=== PATIENT | male | born 1980 | race Caucasian/White ===

== ENCOUNTER 2018-01-11 20:35 | Emergency (ER) | payer OTHER ==
[2018-01-11 20:41] VITALS: RESP 20
[2018-01-11] MEDS ORDERED: MORPHINE SULFATE 4 MG/ML SYRINGE IVP STA ×2 (20:45→22:20)
[2018-01-11] MEDS ORDERED: DIPH,PERTUS(ACELL)TETVAC-LF 0.5 ML VIAL IM ONE (20:51)
--- NOTE | 2018-01-11 21:12 | XR ---
EXAMINATION TYPE: XR hand limited LT DATE OF EXAM: 01/11/2018 COMPARISON: NONE HISTORY: 37-year-old male with pain after injury TECHNIQUE: 2 views FINDINGS: There is an oblique midshaft fracture of the second proximal phalanx with one half shaft's width of u lnar displacement and blayne dorsal angulation. No additional acute fracture or dislocation. IMPRESSION: Midshaft fracture of the second proximal phalanx with half a shaft's width of ulnar displacement and blayne dorsal angulation.
[2018-01-11] MEDS ORDERED: SODIUM CHLORIDE 0.9% 500 ML IV ONE (21:18)
[2018-01-11] MEDS ORDERED: ceFAZolin 1,000 MG in DEXTROSE/WATER 1 50ML.BAG IVPB STA (21:18)
--- NOTE | 2018-01-11 21:22 | ED ---
Upper Extremity HPI - General Chief Complaint: Extremity Injury, Upper Stated Complaint: Finger laceration Time Seen by Provider: 01/11/18 20:42 Source: patient Mode of arrival: EMS Limitations: no limitations - History of Present Illness Initial Comments: 37-year-old right handed male patient is brought to the emergency department today via EMS for evaluation of left index finger injury. Patient states that he was changing the belt on his lawnmower when the blade started and cut his finger. Injury occurred approximately an hour ago. Patient is having severe pain to the left index finger. States he is able to feel the tip of the finger. Bleeding is currently controlled. Patient is unsure when his last tetanus vaccine was given. He denies any other injuries. Patient denies any headache, neck pain, back pain, chest pain, shortness of breath, dizziness, weakness, abdominal pain, nausea, vomiting, or difficulties with bowel movements or urination. - Related Data Home Medications Medication Instructions Recorded Confirmed No Known Home Medications [No 01/11/18 01/11/18 Known Home Medications] Allergies Allergy/AdvReac Type Severity Reaction Status Date / Time No Known Allergies Allergy Verified 01/11/18 21:21 Review of Systems ROS Statement: Those systems with pertinent positive or pertinent negative responses have been documented in the HPI. ROS Other: All systems not noted in ROS Statement are negative. Past Medical History Past Medical History: No Reported History History of Any Multi-Drug Resistant Organisms: None Reported Past Surgical History: No Surgical Hx Reported Past Psychological History: No Psychological Hx Reported Smoking Status: Current every day smoker Past Alcohol Use History: Occasional Past Drug Use History: Marijuana General Exam Limitations: no limitations General appearance: alert, in no apparent distress, other (This is a well- developed, well-nourished adult male patient in mild distress related to pain. Vital signs upon presentation are temperature 98.0F, pulse 93, respirations 20 , blood pressure 125/60, pulse ox 100% on room air.) Eye exam: Present: normal appearance, PERRL, EOMI. Absent: scleral icterus, conjunctival injection, periorbital swelling ENT exam: Present: normal exam, normal oropharynx, mucous membranes moist Respiratory exam: Present: normal lung sounds bilaterally. Absent: respiratory distress, wheezes, rales, rhonchi, stridor Cardiovascular Exam: Present: regular rate, normal rhythm, normal heart sounds. Absent: systolic murmur, diastolic murmur, rubs, gallop, clicks GI/Abdominal exam: Present: soft, normal bowel sounds. Absent: distended, tenderness, guarding, rebound, rigid Extremities exam: Present: full ROM, normal capillary refill, other (Left index finger angulation, 3cm laceration to the medial finger, 2cm laceration to the dorsal finger over the PIP joint. Skin is warm. Cap refill less than three seconds. Radial pulse 2+ equal bilaterally. ). Absent: normal inspection, pedal edema, joint swelling, calf tenderness Neurological exam: Present: alert, oriented X3, CN II-XII intact Psychiatric exam: Present: normal affect, normal mood Skin exam: Present: warm, dry, intact, normal color. Absent: rash Course Vital Signs 01/11/18 20:38 Temperature 98.0 F Pulse Rate 93 Respiratory 20 Rate Blood Pressure 125/60 O2 Sat by Pulse 100 Oximetry Procedures - Nerve Block Consent Obtained: verbal consent Time Out Performed: Yes Local Anesthetic Used: Lidocaine 1% Amount of anesthesia used: 10 Side: left Nerve Blocks: digital (Index) Procedure Successful: Yes Complications: none Patient Tolerated Procedure: well Medical Decision Making - Medical Decision Making 37-year-old male patient presented to the emergency department today for evaluation of left index finger injury. Patient did have distal sensation and cap refill less than 3 seconds. We did provide digital block for analgesia. X- ray did show an oblique midshaft fracture through the proximal phalanx with angulation and displacement. Patient will be given 1 g of Ancef, tetanus will be updated. Finger was irrigated extensively. Dressing applied, splint applied. Patient be transferred to [facility] for further orthopedic evaluation and possible finger salvage. Dr. Brock is accepting. - Radiology Data Radiology results: report reviewed, image reviewed Two-view x-ray of the left hand is obtained. There is no oblique midshaft fracture of the second proximal phalanx with one half shaft width of ulnar displacement blayne dorsal angulation. No additional acute fracture dislocation. Impression by Dr. Coates shows midshaft fractures of second proximal phalanx with half shaft width of ulnar displacement blayne dorsal angulation. Disposition Clinical Impression: Laceration of finger, Proximal phalanx fracture of finger Disposition: OTHER INSTITUTION NOT DEFINED Condition: Serious Referrals: None,Stated [Primary Care Provider] - 1-2 days - Out of Hospital Transfer - Req. Specs Out of Hospital Transfer - Requested Specifics: Other Emergency Center ([facility])
[2018-01-11 22:46] VITALS: BP 125/72; PULSE 87; TEMP 97.5
== END 2018-01-11 22:47 | disposition other institution (70) ==
LOC: EC 20:35
DX: S62.611A Displaced fracture of proximal phalanx of left index finger, initial encounter for closed fracture (principal); W45.8XXA Other foreign body or object entering through skin, initial encounter; F17.200 Nicotine dependence, unspecified, uncomplicated
CPT/HCPCS: 73120; 90715; 99284; 64450; 96365; 96375; 96376; 90471; J2270; J0690